=== PATIENT | male | born 1960 | race Caucasian/White ===

== ENCOUNTER 2023-12-22 05:14 | Emergency (ER) | payer SELFPAY ==
[2023-12-22 05:32] VITALS: RESP 18; BMI 22.2
[2023-12-22] MEDS ORDERED: metroNIDAZOLE 250 MG TABLET ONE (06:19)
[2023-12-22] MEDS ORDERED: KETOROLAC TROMETHAMINE 15 MG/ML VIAL ONE (06:19)
[2023-12-22] MEDS ORDERED: AMPICILLIN NA/SULBACTAM NA 1.5 GM VIAL ONE (06:26)
[2023-12-22] MEDS: KETOROLAC TROMETHAMINE 15 MG/ML VIAL IVPUSH ONE (06:27)
[2023-12-22] MEDS: metroNIDAZOLE 250 MG TABLET PO ONE (06:27)
[2023-12-22 06:31] LABS: BASO % 0.2 % (0-2.0); EOS % 0.1 % (0-4.5); HEMATOCRIT 41.3 % (35.4-49); HEMOGLOBIN 14.1 GM/dL (11.7-16.9); LYMPH % 9.4 % (8-40); MCH 30.7 pg (25.7-33.7); MCHC 34.2 g/dl (32.0-35.9); MEAN CELL VOLUME 89.8 fl (80-96); MEAN PLT VOLUME 7.6 fl (7.5-11.1); MONO % 10.6 % (3.8-10.2); NEUT % 79.7 % (42.8-82.8); PLATELET COUNT 204 10^3/uL (134-434); RDW 14.2 % (11.9-15.9); WHITE BLOOD COUNT 8.7 K/mm3 (4.0-10.0)
[2023-12-22] MEDS: AMPICILLIN NA/SULBACTAM NA 1.5 GM in SODIUM CHLORIDE 100 ML IVPB ONE (06:32)
[2023-12-22 06:50] LABS: POTASSIUM 3.8 mmol/L (3.5-5.1)
[2023-12-22 06:52] LABS: ALBUMIN 3.4 g/dl (3.4-5.0); CALCIUM 8.3 mg/dL (8.5-10.1)
[2023-12-22 06:53] LABS: BLOOD UREA NITROGEN 12.3 mg/dL (7-18)
[2023-12-22 06:56] LABS: BILIRUBIN,TOTAL 0.8 mg/dL (0.2-1); CREATININE 0.6 mg/dL (0.55-1.3); TOT PROT 6.8 g/dl (6.4-8.2)
[2023-12-22 10:37] VITALS: BP 110/74
[2023-12-22 10:38] VITALS: PULSE 62; TEMP 98.6
== END 2023-12-22 10:38 | disposition short-term general hospital (02) ==
LOC: JER 05:14
PROC: 3E03329 Introduction of Other Anti-infective into Peripheral Vein, Percutaneous Approach (ICD-10-PCS; principal; 2023-12-22)
PROC: 3E0333Z Introduction of Anti-inflammatory into Peripheral Vein, Percutaneous Approach (ICD-10-PCS; 2023-12-22)
DX: R22.0 Localized swelling, mass and lump, head (principal); K04.7 Periapical abscess without sinus; R63.0 Anorexia; R68.83 Chills (without fever)
CPT/HCPCS: 36415; 70487-TC; 80053; 83605; 85025; 99285-25

== ENCOUNTER 2024-01-12 06:50 | Observation (INO) | payer OTHER ==
[2024-01-12] MEDS ORDERED: ACETAMINOPHEN 500 MG TABLET (FP) ONE (07:36)
[2024-01-12] MEDS ORDERED: KETOROLAC TROMETHAMINE 30 MG/1 ML VIAL ONE (07:36)
[2024-01-12] MEDS: ACETAMINOPHEN 500 MG TABLET (FP) PO ONE (07:40)
[2024-01-12] MEDS: KETOROLAC TROMETHAMINE 30 MG/1 ML VIAL IM ONE (07:40)
[2024-01-12] MEDS ORDERED: oxyCODONE HCL 5 MG TABLET ONE (08:46)
[2024-01-12] MEDS: oxyCODONE HCL 5 MG TABLET PO ONE (08:48)
[2024-01-12] MEDS ORDERED: morphine SULFATE 4 MG/ML VIAL ONE ×2 (11:00→14:07)
[2024-01-12] MEDS: morphine CARPU-JECT 4 MG/1 ML DISP.SYRIN IVPUSH ONE ×2 (11:14→14:10)
[2024-01-12] MEDS ORDERED: LIDOCAINE 4% PATCH TP ONE (15:30)
[2024-01-12] MEDS: LIDOCAINE 4% PATCH TP ONE (15:34)
[2024-01-12 18:56] VITALS: RESP 18; BMI 22.4
[2024-01-12 19:06] LABS: BASO % 0.2 % (0-2.0); EOS % 0.5 % (0-4.5); HEMATOCRIT 36.5 % (35.4-49); HEMOGLOBIN 12.5 GM/dL (11.7-16.9); LYMPH % 28.3 % (8-40); MCH 30.6 pg (25.7-33.7); MCHC 34.4 g/dl (32.0-35.9); MEAN PLT VOLUME 7.9 fl (7.5-11.1); MONO % 12.7 % (3.8-10.2); NEUT % 58.3 % (42.8-82.8); PLATELET COUNT 231 10^3/uL (134-434); WHITE BLOOD COUNT 6.4 K/mm3 (4.0-10.0)
[2024-01-12] MEDS: CELECOXIB 100 MG CAPSULE PO SCH (19:15)
[2024-01-12] MEDS: ACETAMINOPHEN 500 MG TABLET (FP) PO PRN (19:17)
[2024-01-12 19:30] LABS: ALBUMIN 3.5 g/dl (3.4-5.0); BLOOD UREA NITROGEN 16.2 mg/dL (7-18)
[2024-01-12 19:33] LABS: BILIRUBIN,TOTAL 1.1 mg/dL (0.2-1); CREATININE 0.7 mg/dL (0.55-1.3)
[2024-01-12 19:35] LABS: TOT PROT 6.6 g/dl (6.4-8.2)
[2024-01-12] MEDS: LIDOCAINE PATCH REMOVAL MC SCH (22:20)
[2024-01-13] MEDS: TAMSULOSIN HCL 0.4 MG CAP PO SCH (09:16)
[2024-01-14 09:30] VITALS: BP 110/73; PULSE 67; TEMP 98.1
== END 2024-01-14 12:51 | disposition home or self-care (01) ==
LOC: JER 06:50 → JERBED 13:56 → J7W 18:03
PROVIDERS: ADMIT Internal Medicine; ATTEND Internal Medicine
PROC: 3E0233Z Introduction of Anti-inflammatory into Muscle, Percutaneous Approach (ICD-10-PCS; principal; 2024-01-12)
PROC: 3E033NZ Introduction of Analgesics, Hypnotics, Sedatives into Peripheral Vein, Percutaneous Approach (ICD-10-PCS; 2024-01-12)
DX: M79.652 Pain in left thigh (principal); X58.XXXA Exposure to other specified factors, initial encounter; Y93.89 Activity, other specified; Y92.89 Other specified places as the place of occurrence of the external cause; Y99.0 Civilian activity done for income or pay; E11.9 Type 2 diabetes mellitus without complications; N40.0 Benign prostatic hyperplasia without lower urinary tract symptoms; I10 Essential (primary) hypertension; M51.86 Other intervertebral disc disorders, lumbar region
CPT/HCPCS: 36415; 73552-TC-LT-FY; 73701-TC-RT; 80053; 82550; 82962; 85025; 93971-TC; 96372; 96374; 96376; 97116-GP; 97162-GP; 99285-25; G0378; Q9967